=== PATIENT | male | born 1955 | race Caucasian/White ===

== ENCOUNTER 2024-04-04 03:14 | Emergency (ER) | payer MEDICAID, MEDICARE ==
[~2024-04-04] VITALS: Ht 185.4 cm; Wt 85.1 kg
[2024-04-04 03:20] VITALS: TEMP 97.4
[2024-04-04] MEDS: GLUCAGON INJ 1MG VIAL IV STA (03:53)
[2024-04-04] MEDS: ONDANSETRON 4MG 2ML VIAL IV ONE (04:09)
[2024-04-04 04:30] VITALS: BP 138/67; O2SAT 96
== END 2024-04-04 04:43 | disposition home or self-care (01) ==
LOC: M ED 03:14
DX: T18.108A Unspecified foreign body in esophagus causing other injury, initial encounter (principal); K21.9 Gastro-esophageal reflux disease without esophagitis; E78.5 Hyperlipidemia, unspecified; J44.9 Chronic obstructive pulmonary disease, unspecified; Z88.8 Allergy status to other drugs, medicaments and biological substances
CPT/HCPCS: 96374; 96375; 99284; J1610; J2405

== ENCOUNTER 2024-04-16 16:58 | Emergency (ER) | payer MEDICARE ==
[~2024-04-16] VITALS: Ht 185.4 cm; Wt 88.2 kg
[2024-04-16 17:50] LABS: HEMATOCRIT 37.2 % (42.0-52.0); HEMOGLOBIN 12.1 g/dl (13.5-17.5); MEAN CORPUSCULAR HEMOGLOBIN 26.1 pg (27.0-33.0); MEAN CORPUSCULAR HGB CONC 32.5 g/dl (32.0-36.5); MEAN CORPUSCULAR VOLUME 80.2 fl (80.0-96.0); RED BLOOD COUNT 4.64 10^6/uL (4.30-6.10); WHITE BLOOD COUNT 7.3 10^3/uL (4.0-10.0)
[2024-04-16] MEDS: NS 500 ML IV ONE (18:00)
[2024-04-16 18:08] LABS: INR 3.42; PROTHROMBIN TIME 34.3 SECONDS (12.5-14.5)
[2024-04-16] MEDS: OXYMETAZOLINE 0.05% NASAL SPRAY (AFRIN) ONE (18:11)
[2024-04-16 18:17] LABS: PLATELET COUNT, AUTOMATED 83 10^3/uL (150-450)
[2024-04-16 18:22] LABS: ATYPICAL LYMPH 6 % (0-5); LYMPHOCYTES 36 % (16-44); MONOCYTES 19 % (0-5); NEUTROPHILS 39 % (28-66)
[2024-04-16 18:23] LABS: PLATELET ESTIMATE DECREASED (NORMAL)
[2024-04-16] MEDS ORDERED: AMOX875T2 PO (18:37)
[2024-04-16] MEDS: AUGMENTIN 875 MG TAB PO ONE (18:42)
[2024-04-16 19:24] VITALS: BP 119/69; TEMP 97.7; O2SAT 98
== END 2024-04-16 19:24 | disposition home or self-care (01) ==
LOC: EDBD 16:58 → M ED 16:58
DX: R04.0 Epistaxis (principal); D68.32 Hemorrhagic disorder due to extrinsic circulating anticoagulants; D69.6 Thrombocytopenia, unspecified; I48.91 Unspecified atrial fibrillation; Z88.8 Allergy status to other drugs, medicaments and biological substances